=== PATIENT | female | born 1955 | race Hispanic/Latino ===

== ENCOUNTER 2025-01-05 20:55 | Emergency (ER) | payer MEDICARE ==
[~2025-01-05] VITALS: Ht 167.6 cm; Wt 52.2 kg
[~2025-01-05 20:55] MED LIST: ERGO500093 PO; ESTR42.53 TP; OMEP40CA21 PO; PRAV10TA37 PO; RAMI5CAP72 PO; SITA1TBM4 PO; TAMS-55 PO
--- NOTE | 2025-01-05 21:07 | NUR ---
ASSUMED PT CARE
--- NOTE | 2025-01-05 21:38 | ERN ---
ED Note History of Present Illness Stated Complaint: SLIP AND FALL,RIGHT SHOULD PAIN Chief Complaint: Mechanical Fall Time Seen by MD: 21:00 Allergies: Coded Allergies: No Known Drug Allergies (Unverified Allergy, Unknown, 05/09/22) Home Meds Active Scripts Tamsulosin HCl (Flomax) 0.4 Mg Cap.er.24h, 0.4 MG PO DAILY, #7 CAPSULE.DR 0 Refills Prov:VEGA WHITNEY MD 05/11/22 Reported Medications Pravastatin Sodium (Pravastatin Sodium) 10 Mg Tablet, 1 TAB PO HS 05/10/22 Sitagliptin Phos/Metformin HCl (Janumet Xr 50-1,000 mg Tablet) 1 Each Tbmp.24hr, 2 TAB PO QDP 05/10/22 Ramipril (Ramipril) 5 Mg Capsule, 1 CAP PO QDP 05/10/22 Ergocalciferol (Vitamin D2) (Vitamin D2) 1,250 Mcg Capsule, 1 CAP PO [id number] 05/10/22 Omeprazole (Omeprazole) 40 Mg Capsule.dr, 1 CAP PO QDP 05/10/22 Estradiol (Estrace) 42.5 Gm Cream.appl, 1 G TP [id number] 05/10/22 Past Medical History Past Medical History: Diabetes-Type II, Hypertension, Kidney Stone Surgical History: None Review of System Dictation CONSTITUTIONAL: NEGATIVE FOR FEVER,CHILLS, AND WEIGHT LOSS EYES: NEGATIVE FOR INJURY, PAIN,REDNESS, AND DISCHARGE ENT: NEGATIVE FOR INJURY,PAIN OR SWELLING CARDIOVASCULAR: NEGATIVE FOR CHEST PAIN, PALPITATIONS, AND EDEMA RESPIRATORY: NEGATIVE FOR SHORTNESS OF BREATH, COUGH, WHEEZING, AND PLEURITIC CHEST PAIN ABDOMEN/GI: NEGATIVE FOR ABDOMINAL PAIN, NAUSEA, VOMITING, DIARRHEA, AND CONSTIPATION BACK: NEGATIVE FOR INJURY AND PAIN : NEGATIVE FOR INJURY, BLEEDING AND DISCHARGE MS/EXTREMITY: POSITIVE FOR INJURY AND PAIN TO RIGHT SHOULDER AND RIGHT UPPER ARM SKIN: NEGATIVE FOR RASH, AND DISCOLORATION NEURO: NEGATIVE FOR HEADACHE, WEAKNESS, NUMBNESS, TINGLING, AND SEIZURE PSYCH: NEGATIVE FOR SUICIDE IDEATION, HOMICIDAL IDEATION, AND HALLUCINATIONS ALLERGY/IMMUNOLOGY: NEGATIVE FOR HIVES, RASH, AND ALLERGIES Initial Vital Sign VS Vital Signs Date Time Temp Pulse Resp B/P (MAP) Pulse Ox O2 Delivery O2 Flow Rate FiO2 01/05/25 20:58 98.1 86 16 184/94 100 Room Air 0 01/05/25 21:32 21 Physical Exam Dictation GENERAL: AWAKE, ALERT, NAD HEAD/FACE: NORMOCEPHALIC, ATRAUMATIC EYES: PERRL, EOMI, VISION AT BASELINE ENT: ORAL CAVITY CLEAR, TMS CLEAR, NO SIGNS OF INFECTION NECK: TRACHEA MIDLINE, SUPPLE, NO NUCHAL RIGIDITY CARDIOVASCULAR: RRR, NORMAL S1/S2, NO MRGS, NO JVD RESPIRATORY: CTAB, NO RESPIRATORY DISTRESS, NO RALES OR WHEEZES ABDOMEN: SOFT, NON-TENDER, NON-DISTENDED, NORMAL BOWEL SOUNDS, NO GUARDING OR REBOUND. SKIN: WARM, DRY, NORMAL TURGOR, NO RASH MS/EXTREMITY: PULSES EQUAL, NO CYANOSIS, NEUROVASCULAR INTACT, POSITIVE PAIN TO RIGHT SHOULDER AND RIGHT CLAVICLE AREA UPON ATTEMPTING RANGE OF MOTION NEURO: COAX4, GCS 15, STRENGTH 5/5, CN 2-12 INTACT, PSYCH: NORMAL BEHAVIOR, MOOD, AND AFFECT NORMAL ED Course ED Course Orders Procedure Category Date Status Time Shoulder Comp 2+Vws Rt RAD 01/05/25 Taken 21:04 Humerus 2+Vws Rt RAD 01/05/25 Taken 21:04 Ketorolac PHA 01/05/25 Complete Tromethamine 30mg/Ml 21:30 Clavicle Right RAD 01/05/25 Taken 21:40 Sling SUDHA 01/05/25 In Process 21:47 Clavicle Splint SUDHA 01/05/25 Verified 22:38 Current Medications Medications (Trade) Dose Ordered Sig/Margie Route PRN Reason Start Time Stop Time Status Last Admin Dose Admin Ketorolac Tromethamine (toRADol) 30 mg ONCE ONCE IVP 01/05/25 21:30 01/05/25 21:31 DC 01/05/25 21:45 Vital Signs Date Time Temp Pulse Resp B/P (MAP) Pulse Ox O2 Delivery O2 Flow Rate FiO2 01/05/25 21:32 98.8 89 18 170/77 99 Room Air* 0 21 01/05/25 20:58 98.1 86 16 184/94 100 Room Air 0 Medical Decision Making MDM 69-YEAR-OLD FEMALE PRESENTS TO ER VIA EMS STATUS POST SLIP AND FALL AT HOME. PATIENT COMPLAINS OF RIGHT SHOULDER AND RIGHT CLAVICLE PAIN WHEN ATTEMPTING RANGE OF MOTION, PATIENT ALSO PRODUCED WHEN PALPATING RIGHT UPPER ARM. WILL ORDER X-RAY OF RIGHT SHOULDER AND HUMERUS, WE WILL ORDER TORADOL IV FOR PAIN CONTROL A 14 POINTS ROS DONE, PERTINENT POSITIVE AND NEGATIVES DESCRIBED IN HPI; ALL OTHERS NEGATIVE X-RAY WITH POSITIVE FINDINGS OF RIGHT NONDISPLACED CLAVICLE FRACTURE. WE WILL ORDER A CLAVICLE SPLINT FOR PATIENT. WE WILL SEND HER HOME WITH NAPROXEN FOR PAIN CONTROL. AND GIVE A ORTHO REFERRAL PATIENT VSS, NAD, NONTOXIC, STABLE FOR DISCHARGE. PT GIVEN DISCHARGE INSTRUCTIONS IN [place]MAN TERMS AND UNDERSTOOD, ALL QUESTIONS ANSWERED. PT WILL FOLLOW UP WITH PCP AND RETURN TO THE ER IF WORSE. DX & DISP Disposition: Discharge Departure Impression: Primary Impression: Fall from slip, trip, or stumble Additional Impressions: Clavicle fracture, Shoulder pain Condition: Stable Scripts Naproxen (Naprosyn) 500 Mg Tablet 500 MG PO BIDPC PRN for PAIN, #20 TAB 0 Refills Prov: BEATRICE GOMEZ NP 01/05/25 Additional Instructions: FOLLOW-UP WITH YOUR PCP IN 24-72 HOURS AND IN THE EVENT IF SYMPTOMS WORSEN OR AN EMERGENCY OVERNIGHT REPORT TO THE ED IMMEDIATELY. WEAR BRACE FOR IMMOBILIZATION AND FOLLOW-UP WITH ORTHO LIST PROVIDED OR FOLLOW-UP WITH ORTHO OF YOUR CHOICE Referrals: NONE (PCP) ELVIE MERCADO MD, MARGARITA NP Jan 05, 2025 21:38
--- NOTE | 2025-01-05 22:40 | NUR ---
PLACED SPLINT RIGHT SHOULDER
[2025-01-05] MEDS ORDERED: NAPR-1180 PO (22:47)
--- NOTE | 2025-01-05 22:55 | HMCIMG ---
EXAM: CR Right Shoulder, 2 views. CLINICAL HISTORY: Pain. Fall. COMPARISON: None provided. FINDINGS: Partially visualized acute fracture of the lateral end of the right clavicle. No acute humeral fracture is evident. Mild degenerative changes around the included shoulder and elbow joints. Grossly unremarkable soft tissues. IMPRESSION: Partially visualized acute fracture of the lateral end of the right clavicle. No acute humeral fracture is evident. /[place]
--- NOTE | 2025-01-05 23:11 | HMCIMG ---
EXAM: CR right Shoulder, 2 View. CLINICAL HISTORY: FALL, PAIN COMPARISON: None provided. FINDINGS: Mildly displaced, comminuted fracture of the distal clavicle. There is 1 cortical with superior migration of the distal fracture fragment. Mild acromioclavicular and glenohumeral joint osteoarthritis. No acute abnormality within the visualized chest. IMPRESSION: 1. Mildly displaced, comminuted distal clavicle fracture with superior migration of the distal fragment. /[place]
--- NOTE | 2025-01-05 23:13 | HMCIMG ---
EXAM: CR right Clavicle Complete, 2 View. CLINICAL HISTORY: FALL, PAIN COMPARISON: None provided. FINDINGS: Mildly displaced, comminuted fracture of the distal clavicle. There is 1 cortical width superior migration of the distal fracture fragment. Mild acromioclavicular and glenohumeral joint osteoarthritis. No acute abnormality within the visualized chest. IMPRESSION: 1. Mildly displaced, comminuted distal clavicle fracture with superior migration of the distal fragment. /[place]
[2025-01-05 23:21] VITALS: BP 65/77; PULSE 85; RESP 18; TEMP 98.5; O2SAT 100
== END 2025-01-05 23:23 | disposition home or self-care (01) ==
LOC: EDH 20:55
DX: S42.031A Displaced fracture of lateral end of right clavicle, initial encounter for closed fracture (principal); M25.511 Pain in right shoulder; E11.9 Type 2 diabetes mellitus without complications; I10 Essential (primary) hypertension; W01.0XXA Fall on same level from slipping, tripping and stumbling without subsequent striking against object, initial encounter; Y93.89 Activity, other specified; Y92.89 Other specified places as the place of occurrence of the external cause; Y99.8 Other external cause status
CPT/HCPCS: 99284; 96374; 73000; 73060; 73030; J1885